=== PATIENT | female | born 2000 | race Caucasian/White ===

== ENCOUNTER 2021-04-05 01:21 | Inpatient (IN) | payer OTHER, SELFPAY ==
[2021-04-05] VITALS (142 sets, daily range): BP systolic 101–178; BP diastolic 49–97; PULSE 63–136; RESP 14–17; TEMP 36.1–36.9; O2SAT 93–100; BMI 27.1
[2021-04-05 01:21] LABS: Actim Prom Positive
[2021-04-05 01:59] LABS: Basophils % 0.1 %; Eosinophils # 0.2 10^3/uL (0.0-0.8); Eosinophils % 2.1 %; Hematocrit 33.8 % (37.0-47.0); Hemoglobin 9.8 g/dL (11.5-15.3); Lymphocytes # 2.8 10^3/uL (1.5-6.5); Lymphocytes % 28.8 %; Mean Corpuscular Hemoglobin 20.9 pg (28.0-34.0); Mean Corpuscular Volume 72.2 fl (81-99); Mean Platelet Volume 11.8 fL (7.4-10.4); Monocytes # 0.8 10^3/uL (0.2-0.9); Monocytes % 8.4 %; Neutrophils # 5.81 10^3/uL (1.8-8.0); Neutrophils % 59.6 %; Nucleated Red Blood Cells % 0 %; Platelet Count 215 10^3/cmm (130-400); Red Blood Count 4.68 10^6/uL (4.1-5.3); Red Cell Distribution Width 16.3 % (12.1-15.1); White Blood Count 9.8 10^3/uL (4.5-13.0)
[2021-04-05] MEDS: dextrose 5%-lactated ringers 1,000 ML 125 ML IV (01:59)
[2021-04-05] MEDS: ampicillin 2,000 MG in sodium chloride 0.9% (plus) 50 ML 100 MG IV (01:59)
[2021-04-05] MEDS: fentaNYL 50 mcg/mL INJ 2mL IVP (03:28)
[2021-04-05] MEDS: lactated ringers 1,000 ML 999 ML IV (04:42)
--- NOTE | 2021-04-05 05:08 | ANES.PREANE2 ---
Pre-Anesthetic Assessment Pre-Anesthetic Assessment: Height/Weight: Height 1.65 m Weight 73.936 kg Temp Pulse Resp BP 97.0 F L 81 17 178/91 04/05/21 03:09 04/05/21 04:56 04/05/21 01:25 04/05/21 04:56 Preop Diagnosis: labor Proposed Procedure: epidural Familial anesthetic complications: none Was Beta Sergey taken within 24 hours: N/A Was Clonidine taken within 24 hours: N/A Last Intake: 23:30 Social: Social History: No alcohol and No tobacco Exam: Pre-Anes Outpt Exam: alert, oriented x 3, clear to auscultation bilaterally and regular rate & rhythm Airway: Submandibular: WNL Cervical ROM: WNL MP: 1 Dentition: Full Pulmonary: Pulmonary: None reported CV/HEM: CV/HEM: None reported : : None reported Hepatic: Hepatic: None reported GI: GI: GERD Metabolic: Metabolic: None reported Musc/skel: Musc/skel: None reported Neuropsych: Neuropsych: None reported Anesthetic Plan: ASA status: 2 Meds/Allergies Current Medications: Current Medications Generic Name Dose Route Start Last Admin Trade Name Freq PRN Reason Stop Dose Admin Fentanyl 25 - 100 mcg 04/05/21 01:25 04/05/21 03:28 Fentanyl 50 Mcg/ Ml Inj 2ml IVP 25 mcg Q1H PRN Administration SEVERE PAIN Dextrose/Lactated Ringer's 1,000 mls @ 125 m ls/hr 04/05/21 01:30 04/05/21 04:43 Dextrose 5%-Lact ated Ringers IV Infused .Q8H RIK Infusion Lactated Ringer's 1,000 mls @ 999 m ls/hr 04/05/21 03:46 04/05/21 04:42 Lactated Ringers IV 999 mls/hr .Q1H1M PRN Administration See label comment s PFSH Anesthesia Female Reproductive History: : 1 Data Anesthesia CBC & Chem 7: 04/05/21 01:40 Other Labs: Laboratory Results - last 48 hr 04/05/21 04/05/21 00:55 01:40 WBC 9.8 RBC 4.68 Hgb 9.8 L Hct 33.8 L MCV 72.2 L MCH 20.9 L MCHC 29.0 L RDW 16.3 H Plt Count 215 MPV 11.8 H Neut % (Auto) 59.6 Lymph % (Auto) 28.8 [place] % (Auto) 8.4 Eos % (Auto) 2.1 Baso % (Auto) 0.1 Neut # (Auto) 5.81 Lymph # (Auto) 2.8 [place] # (Auto) 0.8 Eos # (Auto) 0.2 Baso # (Auto) 0.0 Nucleated RBC % (auto) 0 Nucleated RBCs # 0.0 Insulin-like GF I Positive Cardiac Studies: No Data to Display
[2021-04-05] MEDS: ampicillin 1,000 MG in sodium chloride 0.9% (plus) 50 ML 100 MG IV ×2 (05:37→09:40)
--- NOTE | 2021-04-05 05:48 | ANES.PROC ---
Anesthesia Procedures Procedure/Date: 04/05/21 Epidural: Time Out Performed: Yes Consents Signed: Procedure Consent and NPO Consent Consent: requested by attending/covering physician, from patient, risks and benefits reviewed and patient agrees to proceed Lumbar Level: L3-L4 Epidural position: sitting Epidural procedure: sterile prep of area (betadine), 1% lidocaine to numb the area (3ml), 18 g needle, neg for paresthesia, test dose given, 1.5% xylocaine 1:200k epi (5ml), 0.2% Ropivacaine bolus ml (5ml), placed PCEA, no systemic response, sterile dressing applied, L.U.D. no apparent complications and 0.2% Ropiavacaine @ mls/hr (10ml/hr)
[2021-04-05] MEDS: lactated ringers 1,000 ML 125 ML IV (06:01)
--- NOTE | 2021-04-05 07:30 | PC.NURSE ---
Nurse called to room, pt stated she is starting to hurt. Nurse pushed dose button on epidural, to find that epidural pump was not running. Nurse turned pump on and pushed bolus button, repositioned patient and assisted her in getting comfortable.
[2021-04-05] MEDS: oxytocin 30 UNIT/500 ML BAG 600 UNIT IV (11:16)
--- NOTE | 2021-04-05 11:41 | PM.DELIVERY ---
Delivery Note: Date of delivery: April 05, 2021 Pre-Delivery Course: The patient had routine care at [facility] with Dr. Ham. She was blood type a positive antibody negative. She was GBS positive. Her other labs were unremarkable. Delivery: This is a 21-year-old G1, P0 at 39 weeks gestation who presented to labor and delivery with spontaneous rupture of membranes. She was known to be GBS positive and was started on ampicillin protocol. She received 3 doses prior to delivery. She received an epidural for pain management. She had a normal spontaneous vaginal delivery of a viable male infant over an intact perineum. The infant was suctioned at delivery and placed on the mother's chest. The cord was clamped and cut. The placenta was delivered grossly intact and normal to inspection. There was a first-degree left labial laceration that was sutured using 3-0 chromic. There was a first-degree vaginal laceration midline that was sutured using 3-0 chromic. Estimated blood loss 175 mL. A&P Assessment and plan (1) Normal spontaneous vaginal delivery: Status: Acute Coding Level of Care Code Acute Reworker for Chg Fwd Diagnoses Normal spontaneous vaginal delivery O80
--- NOTE | 2021-04-05 11:45 | PM.OPHPUD ---
Labor & Delivery H&P Update Date of Procedure: April 05, 2021 Date H&P Performed: 04/02/21 Admission Diagnosis: Preop diagnosis: labor
[2021-04-05] MEDS: benzocaine-menthol 78 gm Canister 1 SPRAY TOPICAL (14:31)
[2021-04-05] MEDS: ibuprofen 800 mg tablet PO ×2 (14:31→20:50)
[2021-04-05 23:07] LABS: Hematocrit 28.7 % (37.0-47.0); Hemoglobin 8.8 g/dL (11.5-15.3); Mean Corpuscular HGB Conc 30.7 g/dL (30.0-36.0); Mean Corpuscular Hemoglobin 21.6 pg (28.0-34.0); Mean Corpuscular Volume 70.3 fl (81-99); Mean Platelet Volume 11.8 fL (7.4-10.4); Platelet Count 188 10^3/cmm (130-400); Red Blood Count 4.08 10^6/uL (4.1-5.3); Red Cell Distribution Width 16.6 % (12.1-15.1); White Blood Count 18.8 10^3/uL (4.5-13.0)
[2021-04-06] MEDS: lanolin oint 7 gm 1 APPLIC TOPICAL (08:32)
[2021-04-06] MEDS: prenatal vitamin Capsule 1 CAP PO (08:32)
[2021-04-06] MEDS: ibuprofen 800 mg tablet PO ×3 (08:32→21:24)
[2021-04-06] MEDS: docusate sodium 100 mg Capsule PO ×2 (08:32→18:14)
--- NOTE | 2021-04-06 10:31 | PM.PN ---
Subjective Subjective: Interval history: day #1 doing well. Mother is ambulating, tolerating a regular diet, has average vaginal bleeding and no pain. Vitals/I&O/Wt Last Vital Signs Temp 98.0 F 04/05/21 17:15 Pulse 71 04/05/21 21:20 Resp 16 04/05/21 21:20 BP 121/79 04/05/21 21:20 Pulse Ox 99 04/05/21 21:20 04/05/21 04/06/21 04/06/21 22:59 06:59 14:59 Intake Total 1612 / 1612 Balance 1612 / -488 Weight last 48 hrs Weight 73.936 kg Physical Exam HENMT: COMMON NORMALS: normocephalic and atraumatic HEAD & SCALP: normocephalic and atraumatic Eye: COMMON NORMALS: Equal, round and reactive pupils present and EOMs intact bilaterally PUPIL: Yes Equal, round and reactive pupils present Lymph: LYMPHATIC: no lymphadenopathy noted Chest: COMMONS NORMALS: normal inspection of the chest Resp: COMMON NORMALS: normal respiratory effort Cardio: COMMON NORMALS: regular rate, regular rhythm and No murmurs present (Cardio) RATE: regular rate RHYTHM: regular rhythm GI: COMMON NORMALS: Soft to palpation (Fundus firm U- 2) and non-tender PALPATION: Yes Soft to palpation (Fundus firm U- 2) Extremity: COMMON NORMALS: no pedal edema GENERAL: No calf tenderness Psych: COMMON NORMALS: cooperative and normal affect Urinary Catheter Management^: Delvalle Latex: Cath Placed During This Visit: yes Reason for Continuing Indwelling Catheter: Other Urinary Catheter Date of Insertion: 04/05/21 Urinary Catheter Time of Insertion: 06:30 Data : 04/05/21 23:00 A&P Assessment and plan (1) Normal spontaneous vaginal delivery: PPD#1 doing well, continue routine care. Status: Acute Attestations Medical Necessity Statement*: routine PP care Coding Level of Care Code Acute Intelligence Agent for Chg Fwd Diagnoses Normal spontaneous vaginal delivery O80
[2021-04-06 12:25] VITALS: BP 113/62; PULSE 81; RESP 16; TEMP 36.8; O2SAT 98
[2021-04-06 17:16] VITALS: BP 113/67; PULSE 86; RESP 16; TEMP 36.7; O2SAT 98
[2021-04-06 21:27] VITALS: BP 113/71; PULSE 78; TEMP 36.9; O2SAT 100
[2021-04-07 04:00] VITALS: BP 131/83; PULSE 78; RESP 17; TEMP 36.6
--- NOTE | 2021-04-07 07:55 | PM.DCS ---
Discharge Providers Date of Admission: 04/05/21 01:21 Date of Discharge: April 07, 2021 Attending Provider at Admission: Tigist Ramos MD Attending Provider at Discharge: Danilo Ham Primary Care Provider: Rohan Chandler DO Diagnoses at Discharge Discharge Diagnosis (1) Normal spontaneous vaginal delivery: Status: Acute Reason for Visit Reason for Visit: rupture of membranes Hospital Course Hospital Course The patient presented to the hospital. She had an unremarkable spontaneous vaginal delivery. Her course was also unremarkable. She breast-fed well. Her bleeding was within normal limits. Her pain was well controlled. Physical Exam Narrative: EXAM NARRATIVE: The patient is alert. She appears comfortable. Her heart has a regular rate and rhythm with no murmurs appreciated. Lungs are clear to auscultation bilaterally. Her fundus is firm and below the umbilicus. Urinary Catheter Management^: Delvalle Latex: Cath Placed During This Visit: yes Reason for Continuing Indwelling Catheter: Other Urinary Catheter Date of Insertion: 04/05/21 Urinary Catheter Time of Insertion: 06:30 Discharge Data Addt'l Data from Hospital Stay: After her delivery her white blood count was 18.8 with a hemoglobin of 8.8 and a platelet count of 188. Vitals: Last Vital Signs Temp 97.8 F 04/07/21 04:00 Pulse 78 04/07/21 04:00 Resp 17 04/07/21 04:00 BP 131/83 04/07/21 04:00 Pulse Ox 100 04/06/21 21:27 Discharge Plan Discharge Patient Disposition: Home Condition: Stable Prescriptions: New ibuprofen 800 mg Tablet 800 mg PO TID Qty: 45 RF: 0 Continued [id number] 1 mg Tablet 1 tab PO DAILY RF: 0 Discontinued famotidine [Pepcid] 20 mg Tablet 20 mg PO BID RF: 0 Discharge Orders: Discharge Order (Routine); Ordered 04/07/21 Ordered By: Danilo Ham Discharge Diet: Advance as tolerated Discharge Activity: Limit activity as instructed Patient Instructions: Depression (DC), Expression, Collection and Storage of Breast Milk (DC), Bleeding (DC), Preeclampsia and Eclampsia After Delivery (GEN), OB Discharge Report, OB Food/Drug Interaction Guide, Opioid Safety, OB Home Care, OB Vaginal Deliveries - [facility] Discharge Attestations Time Spent in Discharge Care*: less than 30 min Specific Discharge Activities: educating patient and educating and/or supporting family/caregiver Quality Metrics Clinical Quality Measures During this hospital stay, did patient experience: None Coding Level of Care Code Acute Chg FW DC note Diagnoses Normal spontaneous vaginal delivery O80
[2021-04-07] MEDS: docusate sodium 100 mg Capsule PO (09:41)
[2021-04-07] MEDS: prenatal vitamin Capsule 1 CAP PO (09:41)
[2021-04-07] MEDS: ibuprofen 800 mg tablet PO (09:41)
[2021-04-07] MEDS: measles,mumps,rubella pf Vial (w/diluent) 0.5 ML SUBCUT (09:41)
[2021-04-07 09:45] VITALS: BP 125/85; PULSE 82; RESP 16; TEMP 36.8; O2SAT 98
--- NOTE | 2021-04-07 13:28 | ANE.PACU2 ---
Inpatient post-anesthesia follow up: Airway intact: Yes Vital signs: Temperature 98.2 F Pulse Rate 82 Respiratory Rate 16 Blood Pressure 125/85 Pulse Oximetry 98 Oxygen Delivery Me thod Room Air Oxygen Flow Rate Fraction of Inspir ed Oxygen Hydration adequate: Yes Nausea and vomiting: No Pain level: 2 Mental status: Baseline
== END 2021-04-07 09:50 | disposition home or self-care (01) | DRG 807 ==
LOC: OPOB 01:26 → OBGYN 01:26
PROVIDERS: Admitting Provider Family Medicine; PCP Family Medicine; Visit Provider Family Medicine
DX: O99.824 Streptococcus B carrier state complicating childbirth (principal); Z37.0 Single live birth; O70.0 First degree perineal laceration during delivery; Z3A.39 39 weeks gestation of pregnancy
CPT/HCPCS: 12345; 36415; 51702; 59025; 59409; 84112; 85025; 85027; 90707; 96372; 99211; J0290; J2795; J3010

== ENCOUNTER → 2021-06-22 14:44 | Outpatient (BNVA) | payer OTHER, SELFPAY | PROVIDERS: PCP Family Medicine; Visit Provider Nurse Practitioner | DX: J02.9 Acute pharyngitis, unspecified (principal); Z20.822 Contact with and (suspected) exposure to COVID-19 | CPT/HCPCS: 87635; 87880 ==

== ENCOUNTER → 2023-03-01 14:18 | Outpatient (BNVA) | payer MEDICAID, SELFPAY | PROVIDERS: PCP Clinical Nurse Specialist Adult Health; Visit Provider Clinical Nurse Specialist Adult Health | DX: Z11.1 Encounter for screening for respiratory tuberculosis (principal); Z71.89 Other specified counseling | CPT/HCPCS: 86480 ==

== ENCOUNTER → 2023-08-18 13:22 | Outpatient (BNVA) | payer OTHER, SELFPAY | PROVIDERS: PCP Clinical Nurse Specialist Adult Health; Visit Provider Clinical Nurse Specialist Adult Health | DX: N91.2 Amenorrhea, unspecified (principal) | CPT/HCPCS: 84702 ==

== ENCOUNTER 2023-08-23 12:16 | Outpatient (CLI) | payer OTHER, SELFPAY ==
[2023-08-23 12:54] LABS: HCG Quantitative 10.47 mIU/mL
== END 2023-08-23 12:17 | disposition home or self-care (01) ==
LOC: LAB 12:19
PROVIDERS: PCP Clinical Nurse Specialist Adult Health; Visit Provider Clinical Nurse Specialist Adult Health
DX: N91.2 Amenorrhea, unspecified (principal)
CPT/HCPCS: 84702

== ENCOUNTER → 2024-01-07 11:15 | Outpatient (BNVA) | payer OTHER, SELFPAY | PROVIDERS: PCP Clinical Nurse Specialist Adult Health; Visit Provider Clinical Nurse Specialist Adult Health | DX: R30.0 Dysuria (principal) | CPT/HCPCS: 81000; 87491; 87591 ==

== ENCOUNTER → 2024-07-05 12:53 | Outpatient (BNVA) | payer OTHER, SELFPAY | PROVIDERS: PCP Clinical Nurse Specialist Adult Health; Visit Provider Clinical Nurse Specialist Adult Health | DX: N39.0 Urinary tract infection, site not specified (principal) | CPT/HCPCS: 81000 ==

== ENCOUNTER → 2025-02-01 14:15 | Outpatient (BNVA) | payer OTHER, SELFPAY | PROVIDERS: PCP Clinical Nurse Specialist Adult Health; Visit Provider Clinical Nurse Specialist Adult Health | DX: Z34.90 Encounter for supervision of normal pregnancy, unspecified, unspecified trimester (principal) | CPT/HCPCS: 84702 ==

== ENCOUNTER → 2025-03-01 13:16 | Outpatient (BNVA) | payer OTHER, SELFPAY | PROVIDERS: PCP Clinical Nurse Specialist Adult Health; Visit Provider Obstetrics & Gynecology | DX: N91.2 Amenorrhea, unspecified (principal) | CPT/HCPCS: 81025 ==

== ENCOUNTER 2025-03-09 14:04 | Outpatient (CLI) | payer OTHER, SELFPAY ==
--- NOTE | 2025-03-09 14:15 | US_ITS ---
WS: [id number] EARLY OBSTETRICAL ULTRASOUND (<14 WEEKS). HISTORY: Z3A.01 - Less than 8 weeks gestation of COMPARISON: None available. Only transabdominal imaging is submitted. Single intrauterine gestational sac is identified. Cardiac activity at 172 BPM. Saxon-rump length measures 4.7 cm which corresponds to a gestation of 11w4d. Normal-appearing yolk sac and amnion demonstrated. No subchorionic hemorrhage. Small amount of free fluid in the cul-de-sac. Neither ovary identified. US/US OB <= 14 weeks fetus [id number] IMPRESSION: 1. Single intrauterine gestation of 11w4d with an EDC of 09/24/2025. 2. Cardiac activity normal at 172 bpm.
== END 2025-03-09 14:05 | disposition home or self-care (01) ==
PROVIDERS: PCP Clinical Nurse Specialist Adult Health; Visit Provider Obstetrics & Gynecology
DX: Z3A.01 Less than 8 weeks gestation of pregnancy (principal)
CPT/HCPCS: 76801

== ENCOUNTER → 2025-03-22 14:46 | Outpatient (BNVA) | payer OTHER, SELFPAY | PROVIDERS: PCP Clinical Nurse Specialist Adult Health; Visit Provider Obstetrics & Gynecology | DX: Z34.90 Encounter for supervision of normal pregnancy, unspecified, unspecified trimester (principal) | CPT/HCPCS: 80307; 84315; 84443; 85025; 86592; 86762; 86803; 86850; 86900; 87086; 87340; 87491; 87591; 87624; 87661; 87806 ==

== ENCOUNTER → 2025-04-12 13:50 | Outpatient (BNVA) | payer OTHER, SELFPAY | PROVIDERS: PCP Clinical Nurse Specialist Adult Health; Visit Provider Nurse Practitioner Women's Health | DX: Z34.82 Encounter for supervision of other normal pregnancy, second trimester (principal); Z3A.16 16 weeks gestation of pregnancy | CPT/HCPCS: 84315 ==

== ENCOUNTER → 2025-06-07 14:18 | Outpatient (BNVA) | payer OTHER, SELFPAY | PROVIDERS: PCP Clinical Nurse Specialist Adult Health; Visit Provider Nurse Practitioner Women's Health | DX: Z34.80 Encounter for supervision of other normal pregnancy, unspecified trimester (principal) | CPT/HCPCS: 84315 ==